=== PATIENT | male | born 1985 | race Two or more races ===

== ENCOUNTER 2017-08-23 18:28 | Emergency (ER) | payer OTHER ==
[~2017-08-23] VITALS: Ht 175.3 cm; Wt 77.1 kg
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
--- NOTE | 2017-08-23 19:09 | NUR ---
Report taken from SUJATA Reyes. Assuming Pt care at this time.
--- NOTE | 2017-08-23 19:15 | NUR ---
PIPPA RODRIGUEZ at bedside for MSE.
--- NOTE | 2017-08-23 19:32 | NUR ---
XRAY at pt bedside.
[2017-08-23] MEDS ORDERED: HYDROMORPHONE 1 MG/1 ML DISP.SYRIN IM ONE (20:00)
[2017-08-23] MEDS ORDERED: ONDANSETRON ODT 4 MG TAB.RAPDIS SL ONE (20:00)
[2017-08-23] MEDS ORDERED: ONDANSETRON ODT 4 MG TAB.RAPDIS ONE (20:05)
[2017-08-23] MEDS ORDERED: HYDROMORPHONE 2 MG/1 ML DISP.SYRIN ONE (20:06)
--- NOTE | 2017-08-23 21:07 | NUR ---
Patient discharged to home in stable conditon. Written and verbal after care instructions given. Patient verbalizes understanding of instructions. Pt taken out of ER by significant other via wheelchair. No distress noted.
[2017-08-23 21:09] VITALS: BP 142/53
== END 2017-08-23 21:16 | disposition home or self-care (01) ==
LOC: ER 18:28
DX: S42.002A Fracture of unspecified part of left clavicle, initial encounter for closed fracture (principal); V29.9XXA Motorcycle rider (driver) (passenger) injured in unspecified traffic accident, initial encounter; Y93.89 Activity, other specified; Y99.8 Other external cause status; Y92.410 Unspecified street and highway as the place of occurrence of the external cause
CPT/HCPCS: 73000; A4663; J1170; Q0162